=== PATIENT | male | born 1950 | race Caucasian/White ===

== ENCOUNTER → 2021-06-28 | Day surgery (SDC) | payer MEDICARE, OTHER ==
[~2021-06-28] VITALS: Ht 182.9 cm; Wt 94.3 kg
[~2021-06-28] MED LIST: BIOTIN5000 MCG PO; DAILY VALUE1 EACH PO; KRILL OIL500 MG PO; LOVAZA1 GM PO
[2021-06-28 11:00] LABS: MCH 29.6 pg (25.0-31.0); MCHC 33.3 g/dL (32.0-36.0); MCV 88.9 fL (78.0-100.0); MPV 11.1 fL (6.0-9.5); RBC 5.06 M/uL (4.70-6.00); RDW 12.1 % (11.5-14.0); WBC 7.2 K/uL (4.0-10.5)
== END | disposition home or self-care (01) ==
LOC: FAS 09:19
PROVIDERS: Legal Medicine
DX: M75.101 Unspecified rotator cuff tear or rupture of right shoulder, not specified as traumatic (principal); M19.011 Primary osteoarthritis, right shoulder; S43.431A Superior glenoid labrum lesion of right shoulder, initial encounter; X58.XXXA Exposure to other specified factors, initial encounter
CPT/HCPCS: 36415; C1713; J0171; J0690; J1885; J2250; J2370; J2405; J2704; J2795; J3010; J7120